=== PATIENT | female | born 1975 | race Caucasian/White ===

== ENCOUNTER 2016-09-14 12:01 | Emergency (ER) | payer BC ==
[2016-09-14 12:10] VITALS: BP 123/68
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
[2016-09-14] MEDS ORDERED: RABIES VACCINE,HUMAN DIPLOID 2.5 UNITS VIAL IM ONE (12:57)
--- NOTE | 2016-09-14 13:02 | ERNOTE ---
Animal Bite ER Date of Service: 09/14/16 Time Seen by Provider: 09/14/16 12:15 Source: patient Exam Limitations: no limitations Immunizations: IMMUNIZATION HX Immunizations Up to Date Yes History of Influenza Vaccine No Hx Pneumococcal Vaccination No Allergies/Adverse Reactions: Allergies No Known Allergies Allergy (Verified 09/14/16 12:11) Home Medications: HOME MEDICATIONS ALPRAZolam [Xanax] 1 mg PO TID PRN 11/05/15 [Last Taken 11/04/15] Carisoprodol [Soma] 350 mg PO TID PRN 11/05/15 [Last Taken 11/02/15] Fluticasone Propionate [Flonase] 1 spray NS DAILY PRN 11/05/15 [Last Taken Unknown] Multivitamin [One Daily Essential] 1 each PO DAILY 11/05/15 [Last Taken 11/04/15 ] Pantoprazole Sodium 40 mg PO DAILY 11/05/15 [Last Taken 11/04/15] SUMAtriptan SUCCINATE [Imitrex] 50 mg PO PRN PRN 11/05/15 [Last Taken Unknown] Amox Tr/Potassium Clavulanate [Augmentin 875-125 Tablet] 875 mg PO Q12H #20 tab 09/14/16 [Last Taken Unknown] Narrative: Pt. comes in with c/o being bitten by two dogs who attacked her and her dog as she was walking her dog in her yard just prior to arrival. Pt. with two puncture wounds on the anterior portion of her alvarado and the dorsal hand. Pt. states that she is unsure of who the dogs belong to and therefore does not know if they have had vaccines but states that she believes that they belong to a neighbor. Pt. states that she has had a tetanus vaccine in the past five years. 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 Denies: mucous membrane contact, scratched Location of Injury: Reports: upper extremity (L), lower extremity (L) Associated symptoms: Reports: pain on movement. Denies: numbness distally, tingling Review of Systems - Review of Systems Constitutional: Present: no symptoms reported. Absent: recent illness, fever, chills, weakness, fatigue, malaise EYE: Present: no symptoms reported ENT: Present: no symptoms reported Respiratory: Present: no symptoms reported. Absent: shortness of breath, cough , wheezing Cardiology: Present: no symptoms reported. Absent: chest pain, palpitations, edema Gastrointestinal/Abdominal: Present: no symptoms reported. Absent: nausea, vomiting, diarrhea Genitourinary: Present: no symptoms reported Musculoskeletal: Present: muscle pain - L alvarado, joint pain - L hand Skin: Present: other - puncture wound L alvarado x 2 0.2cm superficial L hand dorsal X1 0.7cm with skin flap through subcutaneous Neurological: Present: no symptoms reported. Absent: dizziness/light-headedness , numbness, tingling All Other Systems: All systems neg except as marked - Patient's Past Medical History Patient History - Medical: GERD, Migraines Patient History - Cardiac/Respiratory: No pertinent hx Patient History - Cancer: No Hx of Cancer Patient History - Surgical Procedures: Patient History - Other: None LMP (Calendar): 08/31/16 - Social History Living Situations: home Abuse History: No History of abuse Psych History: No pertinent hx Smoking Status: Never smoker Alcohol Use: none Drug Use: none - Immunizations Immunizations Up to Date: Yes Hx Pneumococcal Vaccination: No History of Influenza Vaccine: No Physical Exam - Physical Exam General Appearance: Present: wd/wn, alert, no apparent distress Eye Exam: Normal inspection: bilateral, PERRL: bilateral, EOMI: bilateral Ears, Nose, Throat: Present: normal ENT inspection, normal pharynx Neck: Present: normal inspection Respiratory: Present: no respiratory distress, normal breath sounds, no accessory muscle use, chest nontender, lungs clear Cardiovascular/Chest: Present: regular rate, rhythm, no murmur, normal peripheral pulses Gastrointestinal/Abdominal: Present: normal bowel sounds, nontender, nondistended, soft, no organomegaly Back Exam: Present: normal inspection, normal range of motion, no CVA tenderness , no vertebral tenderness Extremity Exam: Present: normal inspection, non-tender, normal range of motion, no edema Neurological Exam: Present: alert, oriented, normal mood/affect, no motor/ sensory deficits Skin Exam: Present: normal color, warm/dry, other - puncture wound L alvarado x 2 0.2cm superficial L hand dorsal X1 0.7cm with skin flap through subcutaneous. Absent: pallor, skin rash ED Progress - Date and Time Seen: Date and Time: 09/14/16 14:19 Pt. would like to wait and see if the [facility] can find the owners to determine if dogs have vaccines before getting RIG and vaccine herself. Told her that would be ok but I do not want to delay it longer than 2 more hours so pt. states that she will notify me by 5 pm if there are able to find records for dogs. 09/14/16 17:54 Pt. called me and asked that I call the [facility] department of public health and is requesting a call from me to the [place] dept of public health. Called the dept of health and left a mesage as pt. is refusing to get vaccines as the dept of health told her that she did not have to. - Vital Signs Patient's Vital Signs:: I have reviewed the patient's vital signs. Vital Signs: Vital Signs 09/14/16 12:04 Temperature 37.3 C Pulse Rate 115 H Respiratory 16 Rate Blood Pressure 123/68 O2 Sat by Pulse 97 Oximetry - X-Ray X-Ray #1 X-Ray: hand Interpretation: Reviewed by me X-ray Comments: no acute X-Ray #2 X-Ray: tibula/fibula Interpretation: Reviewed by me X-ray Comments: no acute - Progress/Reassessment Chief Complaint: Animal Bite Procedures Left Dorsal Hand I & D Prep: betadine prep, other - irrigation Wound's Depth/Shape: into subcutaneous Wound Explored: clean, no foreign body Wound Intervention: irrigated w/saline Distal NVT: neuro/vasc intact, no tendon injury Wound Repaired With: Steri-strips Wound Dressing: sterile dressing applied Complications: Pt tae procedure well Comment: Loosely closed with 1 steristrip enough to keep open to allow for drainage but closed enough to aid in healing Departure Clinical Impression: Dog bite Qualifiers: Encounter type: initial encounter Qualified Code(s): W54.0XXA - Bitten by dog, initial encounter - Departure Disposition: Home self-care Condition: Good Instructions: VIS, Rabies - CDC, Animal Bite Additional Instructions: Please follow up with primary provider in 2-3 days for wound check and follow up here for rabies vaccines on 09/17, 09/21, 09/28 and 10/05 in the [facility] and return here later today if the animals are found to not have vaccines current. Prescriptions: Amox Tr/Potassium Clavulanate [Augmentin 875-125 Tablet] 875 mg PO Q12H #20 tab
[2016-09-14] MEDS ORDERED: RABIES IMMUNE GLOBULIN 150 UNITS/ML ML IM PRN (13:24)
== END 2016-09-14 14:30 | disposition home or self-care (01) ==
LOC: ER 12:01
DX: S61.452A Open bite of left hand, initial encounter (principal); S81.852A Open bite, left lower leg, initial encounter; W54.0XXA Bitten by dog, initial encounter; Y92.017 Garden or yard in single-family (private) house as the place of occurrence of the external cause